=== PATIENT | male | born 1965 | race Caucasian/White ===

== ENCOUNTER 2018-09-08 02:33 | Emergency (ER) | payer SELFPAY ==
[~2018-09-08] VITALS: Ht 177.8 cm; Wt 90.7 kg
[2018-09-08 05:10] LABS: BASOPHILS ABSOLUTE AUTO 0.05 K/mm3 (0.00-0.23); BASOPHILS PERCENT AUTO 0 % (0-2); EOSINOPHILS ABSOLUTE AUTO 0.03 K/mm3 (0.00-0.68); EOSINOPHILS PERCENT AUTO 0 % (0-6); Hemoglobin 10.2 g/dL (13.5-17.5); IMMATURE GRAN ABSOLUTE AUTO 0.13 K/mm3 (0.00-0.10); IMMATURE GRAN PERCENT AUTO 1 % (0-1); LYMPHOCYTES ABSOLUTE AUTO 1.37 K/mm3 (0.84-5.20); LYMPHOCYTES PERCENT AUTO 9 % (21-46); MONOCYTES ABSOLUTE AUTO 1.23 K/mm3 (0.16-1.47); MONOCYTES PERCENT AUTO 8 % (4-13); Mean Corpuscular HGB 26.1 pg (26.0-34.0); Mean Corpuscular HGB Conc 31.9 g/dL (31.5-36.5); Mean Corpuscular Volume 82 fL (80-100); NEUTROPHILS ABSOLUTE AUTO 12.87 K/mm3 (1.96-9.15); NEUTROPHILS PERCENT AUTO 82 % (41-73); Platelet Count 656 K/mm3 (150-400); RDW Coefficient Variation 15.1 % (11.7-14.2); RDW Standard Deviation 45.6 fL (35.1-46.3); Red Blood Cell Count 3.91 M/mm3 (4.30-5.90); White Blood Cell Count 15.68 K/mm3 (4.00-11.30)
[2018-09-08 05:25] LABS: Alanine Aminotransfer (ALT/SGP 26 U/L (12-78); Albumin, Blood 2.1 g/dL (3.4-5.0); Albumin/Globulin Ratio 0.4 (0.8-1.8); Alk Phos 50 U/L (50-136); Anion Gap 9 mmol/L (6-16); Aspartate Aminotrans (AST/SGOT 25 U/L (12-37); Blood Urea Nitrogen 26 mg/dL (8-24); Bun/Creatinine Ratio 34.9 (12.0-20.0); CO2, Blood 25 mmol/L (21-32); Chloride, Blood 98 mmol/L (98-108); Creatinine, Blood 0.75 mg/dL (0.60-1.20); Globulin, Blood 5.1 g/dL (2.2-4.0); Glomerular Filtration Rate >60 (60-); Glucose, Blood 130 mg/dL (70-99); Potassium, Blood 3.4 mmol/L (3.5-5.5); Sodium, Blood 132 mmol/L (136-145); Total Protein, Blood 7.2 g/dL (6.4-8.2)
[2018-09-08] MEDS ORDERED: OXYC10TA19 (07:11)
[2018-09-08] MEDS ORDERED: ONDA4ODT MM (07:12)
[2018-09-08] MEDS ORDERED: Excedrin Extra1 EACH PO (07:12)
[2018-09-08] MEDS ORDERED: IBUP400 PO (07:13)
== END 2018-09-08 15:40 | disposition short-term general hospital (02) ==
LOC: ER 02:33
PROVIDERS: Emergency Medicine
DX: L02.211 Cutaneous abscess of abdominal wall (principal); Z79.899 Other long term (current) drug therapy; Z79.82 Long term (current) use of aspirin
CPT/HCPCS: 36415; 74177; 80053; 83605; 83690; 85025; 96361-59; 96365-59; 96375-59; 96376-59; 99285-25; J1170; J2405; J2543; J7030; J7120; Q9967

== ENCOUNTER 2018-10-17 13:25 | Inpatient (IN) | payer OTHER ==
[~2018-10-17] VITALS: Ht 177.8 cm; Wt 108.3 kg
[~2018-10-17 13:25] MED LIST: Excedrin Extra1 EACH PO; IBUP400 PO; ONDA4ODT MM; OXYC10TA19
[2018-10-17 14:10] LABS: BASOPHILS ABSOLUTE AUTO 0.01 K/mm3 (0.00-0.23); BASOPHILS PERCENT AUTO 0 % (0-2); EOSINOPHILS ABSOLUTE AUTO 0.04 K/mm3 (0.00-0.68); EOSINOPHILS PERCENT AUTO 0 % (0-6); Hematocrit 31.8 % (37.0-53.0); Hemoglobin 9.7 g/dL (13.5-17.5); IMMATURE GRAN ABSOLUTE AUTO 0.03 K/mm3 (0.00-0.10); IMMATURE GRAN PERCENT AUTO 0 % (0-1); LYMPHOCYTES ABSOLUTE AUTO 0.76 K/mm3 (0.84-5.20); LYMPHOCYTES PERCENT AUTO 8 % (21-46); MONOCYTES ABSOLUTE AUTO 0.86 K/mm3 (0.16-1.47); MONOCYTES PERCENT AUTO 9 % (4-13); Mean Corpuscular HGB 26.8 pg (26.0-34.0); Mean Corpuscular HGB Conc 30.5 g/dL (31.5-36.5); Mean Corpuscular Volume 88 fL (80-100); NEUTROPHILS ABSOLUTE AUTO 7.54 K/mm3 (1.96-9.15); NEUTROPHILS PERCENT AUTO 82 % (41-73); RDW Standard Deviation 54.6 fL (35.1-46.3); Red Blood Cell Count 3.62 M/mm3 (4.30-5.90); White Blood Cell Count 9.24 K/mm3 (4.00-11.30)
[2018-10-17] MEDS ORDERED: ACET500 PO (14:26)
[2018-10-17] MEDS ORDERED: ASPI81CH PO (14:26)
[2018-10-17] MEDS ORDERED: Calicum 500+D1 EACH PO (14:26)
[2018-10-17 14:27] LABS: Platelet Count 47 K/mm3 (150-400)
[2018-10-17] MEDS ORDERED: HYDMOR2 PO (14:27)
[2018-10-17] MEDS ORDERED: ELIQUIS5 MG PO (14:27)
[2018-10-17] MEDS ORDERED: METO5A PO (14:28)
[2018-10-17] MEDS ORDERED: Culturelle1 CAP (14:28)
[2018-10-17] MEDS ORDERED: OMEP20ER PO (14:29)
[2018-10-17] MEDS ORDERED: NARCAN4 MG (14:29)
[2018-10-17 14:34] LABS: Alanine Aminotransfer (ALT/SGP 31 U/L (12-78); Albumin, Blood 1.7 g/dL (3.4-5.0); Albumin/Globulin Ratio 0.3 (0.8-1.8); Alk Phos 55 U/L (50-136); Anion Gap 9 mmol/L (6-16); Aspartate Aminotrans (AST/SGOT 23 U/L (12-37); Bilirubin, Total 0.8 mg/dL (0.1-1.0); Blood Urea Nitrogen 16 mg/dL (8-24); Bun/Creatinine Ratio 30.4 (12.0-20.0); CO2, Blood 23 mmol/L (21-32); Calcium, Blood 7.7 mg/dL (8.5-10.1); Chloride, Blood 106 mmol/L (98-108); Creatinine, Blood 0.53 mg/dL (0.60-1.20); Globulin, Blood 5.8 g/dL (2.2-4.0); Glomerular Filtration Rate >60 (60-); Glucose, Blood 115 mg/dL (70-99); Potassium, Blood 3.5 mmol/L (3.5-5.5); Sodium, Blood 138 mmol/L (136-145); Total Protein, Blood 7.5 g/dL (6.4-8.2)
[2018-10-18 05:27] LABS: Hemoglobin 7.6 g/dL (13.5-17.5); Mean Corpuscular HGB 26.7 pg (26.0-34.0); Mean Corpuscular HGB Conc 30.4 g/dL (31.5-36.5); Mean Corpuscular Volume 88 fL (80-100); Mean Platelet Volume 12.3 fL (9.1-12.4); RDW Coefficient Variation 17.1 % (11.7-14.2); RDW Standard Deviation 54.6 fL (35.1-46.3); Red Blood Cell Count 2.85 M/mm3 (4.30-5.90); White Blood Cell Count 8.55 K/mm3 (4.00-11.30)
[2018-10-18 05:30] LABS: Platelet Count 35 K/mm3 (150-400)
[2018-10-18 05:44] LABS: Anion Gap 5 mmol/L (6-16); Blood Urea Nitrogen 11 mg/dL (8-24); Bun/Creatinine Ratio 18.6 (12.0-20.0); CO2, Blood 26 mmol/L (21-32); Calcium, Blood 7.2 mg/dL (8.5-10.1); Chloride, Blood 108 mmol/L (98-108); Creatinine, Blood 0.59 mg/dL (0.60-1.20); Glomerular Filtration Rate >60 (60-); Glucose, Blood 90 mg/dL (70-99); Potassium, Blood 3.5 mmol/L (3.5-5.5); Sodium, Blood 139 mmol/L (136-145)
--- NOTE | 2018-10-18 05:48 | NUR ---
SHIFT SUMMARY PT ADMITTED FOR NECROTIZING PANCREATITIS. STATES ABDOMEN IS QUITE DISTENDED, ABDOMEN FIRM. PT NAUSEATED, BUT STATES NAUSEA MEDICINE WILL NOT HELP HIM. ALSO STATES HE WAS TOLD HE HAS A PNEUMONIA AND HE FEELS CONGESTED WITH A COUGH. MEPILEX REPLACED ON RIGHT HIP, AREA CLEANSED. APPEARS TO LOOK LIKE IT WAS A BLISTER AT ONE TIME. PT STATES HE ACCIDENTLY PULLED OUT PANCREATIC DRAIN TUBE IN HIS SLEEP YESTERDAY, WHICH IS WHAT BROUGHT HIM IN. WAITING FOR A BED AT [facility]. DRESSING CHANGED ON LEFT LOWER SIDE WHERE DRAIN TUBE WAS, SEROSANGINOUS DRAINAGE NOTED, AREA CLEANSED AND REDRESSED. PT C/O ABDOMINAL PAIN ALL OVER, MEDICATED WITH PO DILAUDID 4 MG. ORDER RECEIVED FOR PT COUGH WELL. PT UP INDEPENDENTLY TO BATHROOM, IS ALERT AND ORIENTED. HAS PICC LINE, DOUBLE LUMEN, IN RIGHT UPPER ARM. CRITICAL LAB CALLED THIS AM, PLATELETS 35. HGB DROPPED TO 7.6 AND HEMATOCRIT DOWN TO 25. ORDERS RECEIVED FOR PRBC'S. WILL CONTINUE TO MONITOR.
[2018-10-18 05:50] LABS: BAND PERCENT MAN 9 % (0-8); BASOPHILS ABSOLUTE MAN 0.08 K/mm3 (0.00-0.23); BASOPHILS PERCENT MAN 1 % (0-2); EOSINOPHILS ABSOLUTE MAN 0.08 K/mm3 (0.00-0.68); EOSINOPHILS PERCENT MAN 1 % (0-6); LYMPHOCYTES ABSOLUTE MAN 0.51 K/mm3 (0.84-5.20); LYMPHOCYTES PERCENT MAN 6 % (21-46); MONOCYTES ABSOLUTE MAN 0.51 K/mm3 (0.16-1.47); MONOCYTES PERCENT MAN 6 % (4-13); NEUTROPHILS ABSOLUTE MAN 7.35 K/mm3 (1.96-9.15); SEG NEUTROPHILS PERCENT MAN 77 % (41-73); TOTAL CELLS COUNTED 100
--- NOTE | 2018-10-18 06:12 | NUR ---
[facility] HAS BED AVAILABLE, REPORT CALLED TO NURSE AT RECEIVING FACILITY. WILL CALL WITH ETA ONCE TRANSPORT ARRANGED.
--- NOTE | 2018-10-18 07:49 | NUR ---
PATIENT DISCHARGE: PATIENT DISCHARGED/XFR TO [facility] THIS SHIFT. 1 UNIT PRBCs HUNG & TRANSFUSING. PATIENT MEDICATED c DILAUDID 4 MG PO PRIOR TO XFR. [facility] INFORMED OF PATIENT DEPARTURE. PATIENT DEPARTED MEDICAL FLOOR VIA business account leader c SALLIE @ [phone]. PATIENT DEPARTED [facility] VIA AMBULANCE.
== END 2018-10-18 07:47 | disposition short-term general hospital (02) | DRG 919 ==
LOC: ER 13:25 → MEDS 20:16 → ENPENDDIS 10-18 07:07 → MEDS 10-18 07:47
PROVIDERS: Physician Assistant; ADMIT Hospitalist
PROC: 30233N1 Transfusion of Nonautologous Red Blood Cells into Peripheral Vein, Percutaneous Approach (ICD-10-PCS; principal; 2018-10-17)
DX: T85.628A Displacement of other specified internal prosthetic devices, implants and grafts, initial encounter (principal); I81 Portal vein thrombosis; J18.1 Lobar pneumonia, unspecified organism; K85.91 Acute pancreatitis with uninfected necrosis, unspecified; K68.12 Psoas muscle abscess; K86.3 Pseudocyst of pancreas; D64.9 Anemia, unspecified; D69.6 Thrombocytopenia, unspecified; Z90.5 Acquired absence of kidney; Z91.14 Patient's other noncompliance with medication regimen; K21.9 Gastro-esophageal reflux disease without esophagitis
CPT/HCPCS: 36415; 36430; 74177; 80048; 80053; 83605; 83690; 85025; 86850; 86900; 86901; 86923; 87040; 87077; 87186; 96365-59; 99284-25; J2543; J3370; J7050; J7120; P9016; Q9967

== ENCOUNTER 2018-11-10 10:55 | Emergency (ER) | payer OTHER ==
[~2018-11-10] VITALS: Ht 177.8 cm; Wt 83.9 kg
[~2018-11-10 10:55] MED LIST changes: +ACET500 PO; +ASPI81CH PO; +Calicum 500+D1 EACH PO; +Culturelle1 CAP; +ELIQUIS5 MG PO; +HYDMOR2 PO; +METO5A PO; +NARCAN4 MG; +OMEP20ER PO
[2018-11-10 11:53] LABS: Hemoglobin 9.9 g/dL (13.5-17.5); Mean Corpuscular HGB 29.3 pg (26.0-34.0); Mean Corpuscular HGB Conc 34.1 g/dL (31.5-36.5); Mean Corpuscular Volume 86 fL (80-100); Mean Platelet Volume 10.7 fL (9.1-12.4); NRBC ABSOLUTE 0.09 K/mm3 (0.00-0.02); NRBC Auto 0.3 /100 WBC (0.0-0.2); Platelet Count 519 K/mm3 (150-400); RDW Coefficient Variation 17.8 % (11.7-14.2); RDW Standard Deviation 52.7 fL (35.1-46.3); Red Blood Cell Count 3.38 M/mm3 (4.30-5.90); White Blood Cell Count 26.92 K/mm3 (4.00-11.30)
[2018-11-10 12:17] LABS: BAND PERCENT MAN 4 % (0-8); BASOPHILS PERCENT MAN 0 % (0-2); EOSINOPHILS PERCENT MAN 0 % (0-6); LYMPHOCYTES ABSOLUTE MAN 1.07 K/mm3 (0.84-5.20); LYMPHOCYTES PERCENT MAN 4 % (21-46); METAMYELOCYTE ABSOLUTE MAN 0.53 K/mm3 (0.00-0.00); METAMYELOCYTE PERCENT MAN 2 % (0-0); MONOCYTES ABSOLUTE MAN 1.34 K/mm3 (0.16-1.47); MONOCYTES PERCENT MAN 5 % (4-13); MYELOCYTE ABSOLUTE MAN 0.26 K/mm3 (0.00-0.00); MYELOCYTE PERCENT MAN 1 % (0-0); NEUTROPHILS ABSOLUTE MAN 23.68 K/mm3 (1.96-9.15); SEG NEUTROPHILS PERCENT MAN 84 % (41-73); TOTAL CELLS COUNTED 100
[2018-11-10 12:33] LABS: Alanine Aminotransfer (ALT/SGP 43 U/L (12-78); Albumin, Blood 1.9 g/dL (3.4-5.0); Albumin/Globulin Ratio 0.3 (0.8-1.8); Alk Phos 1171 U/L (50-136); Anion Gap 10 mmol/L (6-16); Aspartate Aminotrans (AST/SGOT 77 U/L (12-37); Bilirubin, Total 27.1 mg/dL (0.1-1.0); Blood Urea Nitrogen 43 mg/dL (8-24); Bun/Creatinine Ratio 55.3 (12.0-20.0); CO2, Blood 26 mmol/L (21-32); Calcium, Blood 9.1 mg/dL (8.5-10.1); Chloride, Blood 97 mmol/L (98-108); Creatinine, Blood 0.78 mg/dL (0.60-1.20); Glomerular Filtration Rate >60 (60-); Glucose, Blood 139 mg/dL (70-99); Sodium, Blood 133 mmol/L (136-145); Total Protein, Blood 8.9 g/dL (6.4-8.2)
[2018-11-10 13:12] LABS: Bilirubin, Direct 21.6 mg/dL (0.0-0.3); Bilirubin, Indirect 4.5 mg/dL (0.1-0.7); Bilirubin, Total 26.1 mg/dL (0.1-1.0)
[2018-11-10 13:23] LABS: International Normalized Ratio 1.24; Prothrombin Time Results 12.9 Sec (9.7-11.5)
== END 2018-11-10 18:18 | disposition home or self-care (01) ==
LOC: ER 10:55
PROVIDERS: Emergency Medicine; Internal Medicine
DX: E80.6 Other disorders of bilirubin metabolism (principal); K83.1 Obstruction of bile duct; Z79.899 Other long term (current) drug therapy; Z79.82 Long term (current) use of aspirin; K21.9 Gastro-esophageal reflux disease without esophagitis
CPT/HCPCS: 36415; 74177; 80053; 82140; 82247; 82248; 83690; 85025; 85610; 96374-59; 96375; 99285-25; J2405; J3010; Q9967